=== PATIENT | male | born 1955 | race Caucasian/White ===

== ENCOUNTER 2022-01-04 12:16 | Emergency (ER) | payer OTHER ==
[~2022-01-04] VITALS: Ht 185.4 cm; Wt 134.3 kg
[2022-01-04 12:34] VITALS: BP_SYST 122
[2022-01-04] MEDS ORDERED: TETRACAINE HCL/PF 0.5% OPHTHALMIC DROPS 4 ML OP ONE (15:00)
[2022-01-04] MEDS ORDERED: APRACLONIDINE HCL 0.5% EYE DROPS 5 ML OP SCH (16:00)
[2022-01-04] MEDS ORDERED: TIMOLOL MALEATE 0.25% OPHTHALMIC DROPS 5 ML LEFT EYE SCH (16:00)
[2022-01-04] MEDS ORDERED: PILOCARPINE 2% OPHTHALMIC DROPS (ISOPTO CARPINE) OP SCH (16:00)
[2022-01-04 18:37] LABS: HEMATOCRIT 45.1 % (36-54); MEAN CORPUSCULAR HEMOGLOBIN 31 pg (27-31); MEAN CORPUSCULAR HGB CONC 33 % (32-36); MEAN CORPUSCULAR VOLUME 92 fL (79.0-98.0); PLATELET COUNT (AUTO) 242 K/uL (130-430); RED CELL DISTRIBUTION WIDTH 14.1 % (9.0-15.0); WHITE BLOOD COUNT (AUTO) 15.2 K/uL (4.8-10.8)
[2022-01-04 18:52] LABS: CALCIUM 8.8 mg/dL (8.4-11.0); POTASSIUM 3.3 mmol/L (3.5-5.1)
[2022-01-04 18:58] LABS: ALBUMIN 3.2 g/dL (3.4-4.8); TOTAL BILIRUBIN 0.5 mg/dL (0.0-1.0)
[2022-01-04 19:08] LABS: BASOPHILS % (MANUAL) 0 % (0-2); EOSINOPHILS % (MANUAL) 2 % (0-7); LYMPHOCYTES % (MANUAL) 71 % (20-46); MONOCYTES % (MANUAL) 2 % (0-11)
[2022-01-04] MEDS ORDERED: DORZ10DR13 LEFT EYE (23:46)
[2022-01-04] MEDS ORDERED: DIA250 PO (23:46)
[2022-01-04] MEDS ORDERED: XALEYE OP (23:46)
[2022-01-04] MEDS ORDERED: PREDEYE1% EACH EYE (23:46)
[2022-01-04] MEDS ORDERED: BRI.2% LEFT EYE (23:46)
[2022-01-04 23:52] VITALS: BP_SYST 128
== END 2022-01-04 23:52 | disposition home or self-care (01) ==
LOC: SED 12:16
DX: H57.12 Ocular pain, left eye (principal); H40.9 Unspecified glaucoma; Z79.899 Other long term (current) drug therapy; Z20.822 Contact with and (suspected) exposure to COVID-19
CPT/HCPCS: 99291; 96374; 87426; 85027; 80053; 85007; 36415; 99292; J1120